=== PATIENT | female | born 1955 | race Hispanic/Latino ===

== ENCOUNTER 2020-05-19 | Emergency (ER) | payer BC ==
[2020-05-19] MEDS ORDERED: ALENDRONATE SOD70 MG PO (10:59)
[2020-05-19] MEDS ORDERED: NAPROXEN250 MG PO (11:00)
[2020-05-19] MEDS ORDERED: CYCLOBENZAPRINE5 MG PO (11:01)
[2020-05-19] MEDS ORDERED: TORADOL PO (13:12)
== END 2020-05-19 13:21 | disposition home or self-care (01) | DRG 552 ==
DX: M54.5 Low back pain (principal); M79.605 Pain in left leg

== ENCOUNTER 2022-01-20 09:39 | Day surgery (SDC) | payer OTHER ==
[~2022-01-20] VITALS: Ht 152.4 cm; Wt 55.8 kg
[~2022-01-20 09:39] MED LIST: ALENDRONATE SOD70 MG PO; CYCLOBENZAPRINE5 MG PO; HYDROXYCHLOR200 M1 PO; NAPROXEN250 MG PO; PREDNISONE5 MG PO; TORADOL PO; VITAMIN D1000 UNIT PO
[2022-01-20 11:53] VITALS: BP 114/69
== END 2022-01-20 12:07 | disposition home or self-care (01) | DRG 951 ==
LOC: ENDO 09:39
PROVIDERS: ATTEND Surgery
PROC: 0DJD8ZZ Inspection of Lower Intestinal Tract, Via Natural or Artificial Opening Endoscopic (ICD-10-PCS; principal; 2022-01-20)
DX: Z12.11 Encounter for screening for malignant neoplasm of colon (principal); K57.30 Diverticulosis of large intestine without perforation or abscess without bleeding; Z85.3 Personal history of malignant neoplasm of breast